=== PATIENT | female | born 1935 | race Caucasian/White ===

== ENCOUNTER 2019-02-26 08:01 | Observation (INO) ==
[2019-02-26] MEDS ORDERED: Ondansetron ODT 4 MG TAB.RAPDIS SL PRN (10:20)
[2019-02-26] MEDS ORDERED: Naloxone 0.4 MG/ML INJ IVP PRN (10:20)
[2019-02-26] MEDS ORDERED: D5% in Water 1,000 ML IVC PRN (10:29)
[2019-02-26] MEDS ORDERED: Dextrose Gel 15 GM/37.5 ML TUBE PO PRN ×2 (10:29)
[2019-02-26] MEDS ORDERED: *HR* Dextrose 50 % in Water (Syg) 50 ML SYRINGE IVP PRN (10:29)
[2019-02-26] MEDS: Insulin LISPRO 300 UNITS/3 ML VIAL SQ SCH ×2 (12:35→18:11)
[2019-02-26 12:39] LABS: Hematocrit 31.2 % (35.3-44.9); Hemoglobin 10.2 g/dL (11.5-15.4)
[2019-02-26] MEDS ORDERED: 0.9 % Sodium Chloride 1,000 ML IVC SCH (13:45)
[2019-02-26] MEDS ORDERED: SODIUM CHLORIDE/NAHCO3/KCL/PEG 4,000 ML SOLN.RECON PO ONE (17:00)
[2019-02-26 18:14] LABS: Hematocrit 30.3 % (35.3-44.9); Hemoglobin 10.1 g/dL (11.5-15.4)
[2019-02-26] MEDS ORDERED: Insulin LISPRO 300 UNITS/3 ML VIAL SQ SCH (21:00)
[2019-02-27 00:47] LABS: Hematocrit 30.3 % (35.3-44.9); Hemoglobin 10.2 g/dL (11.5-15.4)
[2019-02-27 04:52] LABS: Basophils # 0.1 K/mcL (0.0-0.2); Basophils % 0.5 %; Eosinophils # 0.3 K/mcL (0.0-0.6); Eosinophils % 2.3 %; Hematocrit 26.9 % (35.3-44.9); Hemoglobin 8.7 g/dL (11.5-15.4); Immature Granulocytes % 0.5 % (0-4); Lymphocytes # 2.4 K/mcL (0.6-4.6); Lymphocytes % 21.8 %; Mean Corpuscular HGB Conc 32.3 g/dL (31.6-35.5); Mean Corpuscular Hemoglobin 29.7 pg (28.0-33.3); Mean Corpuscular Volume 91.8 fL (83.0-100.0); Mean Platelet Volume 9.9 fL (9.4-12.4); Monocytes % 8.8 %; Neutrophils # 7.3 K/mcL (1.6-8.9); Platelet Count 164 K/mcL (140-400); Red Blood Count 2.93 M/mcL (3.82-4.97); Red Cell Distribution Width 14.2 % (11.5-14.5); Segmented Neutrophils % 66.1 %
[2019-02-27 04:55] LABS: INR 1.2; Prothrombin Time 13.1 Seconds (9.4-12.1)
[2019-02-27 05:10] LABS: BUN/Creatinine Ratio 24 (6-26); Blood Urea Nitrogen 17 mg/dL (8-23); Calcium 8.5 mg/dL (8.6-10.3); Carbon Dioxide 23 mEq/L (23-29); Chloride 106 mEq/L (98-107); Glucose 168 mg/dL (70-105); Magnesium 1.3 mg/dL (1.6-2.6); Osmolality,Calculated 291 (280-300); Potassium 3.9 mEq/L (3.5-5.1); Sodium 138 mEq/L (136-145); eGFR For African Americans > 60 (> 60); eGFR For Non-African Americans > 60 (> 60)
[2019-02-27] MEDS: Insulin LISPRO 300 UNITS/3 ML VIAL SQ SCH ×3 (08:26→20:59)
[2019-02-27] MEDS ORDERED: Insulin LISPRO 300 UNITS/3 ML VIAL SQ SCH ×4 (09:45→15:06)
[2019-02-27] MEDS ORDERED: Lidocaine -MPF 2% 2 ML VIAL ONE (12:33)
[2019-02-27] MEDS ORDERED: *HR* Propofol 200 MG/20 ML VIAL IVP ONE ×2 (12:33→12:37)
[2019-02-27] MEDS ORDERED: *HR* OxyCODONE Immed Rel 5 MG TABLET PO PRN ×2 (14:50→15:12)
[2019-02-27] MEDS ORDERED: Naloxone 0.4 MG/ML INJ IVP PRN (15:12)
[2019-02-27] MEDS ORDERED: D5% in Water 1,000 ML IVC PRN (15:12)
[2019-02-27] MEDS ORDERED: Ondansetron ODT 4 MG TAB.RAPDIS SL PRN (15:12)
[2019-02-27] MEDS ORDERED: Dextrose Gel 15 GM/37.5 ML TUBE PO PRN ×2 (15:12)
[2019-02-27] MEDS ORDERED: *HR* Dextrose 50 % in Water (Syg) 50 ML SYRINGE IVP PRN (15:12)
[2019-02-27 17:22] LABS: Hematocrit 26.1 % (35.3-44.9); Hemoglobin 8.6 g/dL (11.5-15.4)
[2019-02-27] MEDS: Magnesium Oxide 400 MG TABLET PO SCH (20:59)
[2019-02-27] MEDS ORDERED: Insulin DETEMIR 100 UNIT/ML X5UNITS SQ SCH ×2 (21:00)
[2019-02-27] MEDS ORDERED: Magnesium Oxide 400 MG TABLET PO SCH (21:00)
[2019-02-27 21:44] LABS: Hematocrit 24.4 % (35.3-44.9); Hemoglobin 8.2 g/dL (11.5-15.4)
[2019-02-28 03:41] LABS: Basophils % 0.4 %; Eosinophils # 0.2 K/mcL (0.0-0.6); Eosinophils % 2.6 %; Hematocrit 24.7 % (35.3-44.9); Hemoglobin 8.1 g/dL (11.5-15.4); Immature Granulocytes % 0.3 % (0-4); Lymphocytes # 2.1 K/mcL (0.6-4.6); Lymphocytes % 28.1 %; Mean Corpuscular HGB Conc 32.8 g/dL (31.6-35.5); Mean Corpuscular Hemoglobin 29.3 pg (28.0-33.3); Mean Corpuscular Volume 89.5 fL (83.0-100.0); Mean Platelet Volume 9.9 fL (9.4-12.4); Monocytes # 0.6 K/mcL (0.0-1.3); Monocytes % 8.1 %; Neutrophils # 4.6 K/mcL (1.6-8.9); Platelet Count 150 K/mcL (140-400); Red Blood Count 2.76 M/mcL (3.82-4.97); Red Cell Distribution Width 14.4 % (11.5-14.5); Segmented Neutrophils % 60.5 %; White Blood Count 7.6 K/mcL (4.3-11.1)
[2019-02-28 04:00] LABS: BUN/Creatinine Ratio 18 (6-26); Blood Urea Nitrogen 12 mg/dL (8-23); Calcium 8.4 mg/dL (8.6-10.3); Carbon Dioxide 26 mEq/L (23-29); Chloride 104 mEq/L (98-107); Glucose 170 mg/dL (70-105); Magnesium 1.5 mg/dL (1.6-2.6); Osmolality,Calculated 288 (280-300); Sodium 137 mEq/L (136-145); eGFR For African Americans > 60 (> 60); eGFR For Non-African Americans > 60 (> 60)
[2019-02-28] MEDS: Levothyroxine 25 MCG TABLET PO SCH (06:01)
[2019-02-28] MEDS ORDERED: Levothyroxine 25 MCG TABLET PO SCH (06:30)
[2019-02-28 08:10] LABS: Hematocrit 23.4 % (35.3-44.9); Hemoglobin 7.7 g/dL (11.5-15.4)
[2019-02-28] MEDS: Magnesium Oxide 400 MG TABLET PO SCH ×2 (08:16→20:38)
[2019-02-28] MEDS: Insulin LISPRO 300 UNITS/3 ML VIAL SQ SCH ×4 (08:18→20:38)
[2019-02-28] MEDS ORDERED: Pantoprazole 40 MG VIAL IVP SCH ×2 (09:00)
[2019-02-28] MEDS: Pantoprazole 40 MG VIAL IVP SCH (17:50)
[2019-03-01] MEDS: Levothyroxine 25 MCG TABLET PO SCH (05:47)
[2019-03-01] MEDS: Pantoprazole 40 MG VIAL IVP SCH ×2 (05:47→17:54)
[2019-03-01] MEDS: Insulin LISPRO 300 UNITS/3 ML VIAL SQ SCH ×4 (08:26→21:24)
[2019-03-01] MEDS: Magnesium Oxide 400 MG TABLET PO SCH ×2 (08:27→21:21)
[2019-03-01 08:32] LABS: Basophils % 0.4 %; Eosinophils # 0.2 K/mcL (0.0-0.6); Eosinophils % 2.7 %; Hematocrit 23.4 % (35.3-44.9); Hemoglobin 7.6 g/dL (11.5-15.4); Immature Granulocytes % 0.7 % (0-4); Lymphocytes # 1.5 K/mcL (0.6-4.6); Lymphocytes % 25.9 %; Mean Corpuscular HGB Conc 32.5 g/dL (31.6-35.5); Mean Corpuscular Hemoglobin 29.2 pg (28.0-33.3); Mean Platelet Volume 9.7 fL (9.4-12.4); Monocytes # 0.5 K/mcL (0.0-1.3); Monocytes % 8.1 %; Neutrophils # 3.5 K/mcL (1.6-8.9); Platelet Count 136 K/mcL (140-400); Segmented Neutrophils % 62.2 %; White Blood Count 5.6 K/mcL (4.3-11.1)
[2019-03-01 08:51] LABS: BUN/Creatinine Ratio 13 (6-26); Blood Urea Nitrogen 9 mg/dL (8-23); Calcium 8.5 mg/dL (8.6-10.3); Carbon Dioxide 28 mEq/L (23-29); Chloride 102 mEq/L (98-107); Glucose 241 mg/dL (70-105); Osmolality,Calculated 293 (280-300); Potassium 3.9 mEq/L (3.5-5.1); Sodium 138 mEq/L (136-145); eGFR For African Americans > 60 (> 60); eGFR For Non-African Americans > 60 (> 60)
[2019-03-01] MEDS ORDERED: 0.9 % Sodium Chloride 250 ML IVC SCH (10:45)
[2019-03-01] MEDS ORDERED: Acetaminophen 325 MG TABLET PO PRN (12:41)
[2019-03-02 05:22] LABS: Basophils % 0.4 %; Eosinophils # 0.2 K/mcL (0.0-0.6); Eosinophils % 3.7 %; Hematocrit 26.2 % (35.3-44.9); Hemoglobin 8.7 g/dL (11.5-15.4); Immature Granulocytes % 1.1 % (0-4); Lymphocytes # 1.7 K/mcL (0.6-4.6); Mean Corpuscular HGB Conc 33.2 g/dL (31.6-35.5); Mean Corpuscular Hemoglobin 29.4 pg (28.0-33.3); Mean Corpuscular Volume 88.5 fL (83.0-100.0); Mean Platelet Volume 10.1 fL (9.4-12.4); Monocytes # 0.5 K/mcL (0.0-1.3); Monocytes % 8.4 %; Neutrophils # 3.2 K/mcL (1.6-8.9); Platelet Count 158 K/mcL (140-400); Red Blood Count 2.96 M/mcL (3.82-4.97); Red Cell Distribution Width 14.2 % (11.5-14.5); Segmented Neutrophils % 56.4 %; White Blood Count 5.7 K/mcL (4.3-11.1)
[2019-03-02 05:41] LABS: BUN/Creatinine Ratio 15 (6-26); Blood Urea Nitrogen 10 mg/dL (8-23); Calcium 8.6 mg/dL (8.6-10.3); Carbon Dioxide 26 mEq/L (23-29); Chloride 104 mEq/L (98-107); Glucose 221 mg/dL (70-105); Osmolality,Calculated 294 (280-300); Potassium 3.6 mEq/L (3.5-5.1); Sodium 139 mEq/L (136-145); eGFR For African Americans > 60 (> 60); eGFR For Non-African Americans > 60 (> 60)
[2019-03-02] MEDS: Pantoprazole 40 MG VIAL IVP SCH (06:01)
[2019-03-02] MEDS: Levothyroxine 25 MCG TABLET PO SCH (06:02)
[2019-03-02 07:25] VITALS: BP 117/73
[2019-03-02] MEDS: Insulin LISPRO 300 UNITS/3 ML VIAL SQ SCH (08:36)
[2019-03-02] MEDS: Magnesium Oxide 400 MG TABLET PO SCH (08:36)
== END 2019-03-02 14:16 ==
LOC: ICNU → 3ANU 02-27 17:29
PROVIDERS: ADMIT Pediatrics; ATTEND Pediatrics

== ENCOUNTER 2019-03-16 12:38 | Inpatient (IN) ==
[2019-03-16] MEDS ORDERED: Ondansetron ODT 4 MG TAB.RAPDIS SL PRN (16:01)
[2019-03-16] MEDS ORDERED: Acetaminophen 325 MG TABLET PO PRN (16:01)
[2019-03-16] MEDS ORDERED: Naloxone 0.4 MG/ML INJ IVP PRN (16:01)
[2019-03-16] MEDS ORDERED: *HR* Heparin 5,000 UNIT/ML VIAL IVP ONE (16:22)
[2019-03-16] MEDS ORDERED: *HR* Heparin 5,000 UNIT/ML VIAL IVP PRN ×2 (16:22)
[2019-03-16] MEDS ORDERED: Dextrose Gel 15 GM/37.5 ML TUBE PO PRN ×2 (16:23)
[2019-03-16] MEDS ORDERED: D5% in Water 1,000 ML IVC PRN (16:23)
[2019-03-16] MEDS ORDERED: *HR* Dextrose 50 % in Water (Syg) 50 ML SYRINGE IVP PRN (16:23)
[2019-03-16] MEDS: Heparin 25,000 UNIT/250 ML D5W 25,000 UNIT/250 ML IV.SOLN IVC SCH (16:55)
[2019-03-16] MEDS: Insulin LISPRO 300 UNITS/3 ML VIAL SQ SCH (17:38)
[2019-03-16 18:22] LABS: Hematocrit 33.4 % (35.3-44.9); Hemoglobin 10.9 g/dL (11.5-15.4); Mean Corpuscular HGB Conc 32.6 g/dL (31.6-35.5); Mean Corpuscular Hemoglobin 29.2 pg (28.0-33.3); Mean Corpuscular Volume 89.5 fL (83.0-100.0); Mean Platelet Volume 9.9 fL (9.4-12.4); Platelet Count 235 K/mcL (140-400); Red Blood Count 3.73 M/mcL (3.82-4.97); Red Cell Distribution Width 14.4 % (11.5-14.5); White Blood Count 12.3 K/mcL (4.3-11.1)
[2019-03-16 19:24] LABS: INR 1.2; Prothrombin Time 13.6 Seconds (9.4-12.1)
[2019-03-16 19:36] LABS: Heparin anti-factor XA UFH 1.22 IU/mL (0.30-0.70)
[2019-03-17 02:14] LABS: Basophils % 0.4 %; Eosinophils # 0.5 K/mcL (0.0-0.6); Eosinophils % 4.6 %; Hematocrit 31.5 % (35.3-44.9); Hemoglobin 10.2 g/dL (11.5-15.4); Immature Granulocytes % 0.7 % (0-4); Lymphocytes # 2.4 K/mcL (0.6-4.6); Lymphocytes % 24.5 %; Mean Corpuscular HGB Conc 32.4 g/dL (31.6-35.5); Mean Corpuscular Volume 89.5 fL (83.0-100.0); Mean Platelet Volume 9.7 fL (9.4-12.4); Monocytes # 0.9 K/mcL (0.0-1.3); Neutrophils # 5.9 K/mcL (1.6-8.9); Platelet Count 197 K/mcL (140-400); Red Blood Count 3.52 M/mcL (3.82-4.97); Red Cell Distribution Width 14.6 % (11.5-14.5); Segmented Neutrophils % 60.8 %; White Blood Count 9.7 K/mcL (4.3-11.1)
[2019-03-17 02:33] LABS: BUN/Creatinine Ratio 35 (6-26); Blood Urea Nitrogen 26 mg/dL (8-23); Calcium 9.2 mg/dL (8.6-10.3); Carbon Dioxide 26 mEq/L (23-29); Chloride 97 mEq/L (98-107); Glucose 167 mg/dL (70-105); Osmolality,Calculated 283 (280-300); Potassium 4.4 mEq/L (3.5-5.1); Sodium 132 mEq/L (136-145); eGFR For African Americans > 60 (> 60); eGFR For Non-African Americans > 60 (> 60)
[2019-03-17] MEDS: Insulin LISPRO 300 UNITS/3 ML VIAL SQ SCH ×3 (09:39→18:17)
[2019-03-17 11:07] LABS: % Iron Saturation 8 % (15-50); Iron 24 mcg/dL (50-170); Transferrin 208 mg/dL (203-362)
[2019-03-17 11:33] LABS: Folate 20.2 ng/mL (3.0-16.0)
[2019-03-17] MEDS ORDERED: *HR* OxyCODONE Immed Rel 5 MG TABLET PO PRN (18:12)
[2019-03-17] MEDS: Heparin 25,000 UNIT/250 ML D5W 25,000 UNIT/250 ML IV.SOLN IVC SCH (18:17)
[2019-03-17] MEDS: Sennosides/Docusate Sodium TABLET PO SCH (21:05)
[2019-03-18 05:55] LABS: Hematocrit 31.1 % (35.3-44.9); Mean Corpuscular HGB Conc 32.2 g/dL (31.6-35.5); Mean Corpuscular Hemoglobin 28.7 pg (28.0-33.3); Mean Corpuscular Volume 89.1 fL (83.0-100.0); Platelet Count 203 K/mcL (140-400); Red Blood Count 3.49 M/mcL (3.82-4.97); Red Cell Distribution Width 14.4 % (11.5-14.5); White Blood Count 8.3 K/mcL (4.3-11.1)
[2019-03-18 06:17] LABS: BUN/Creatinine Ratio 29 (6-26); Blood Urea Nitrogen 23 mg/dL (8-23); Calcium 8.8 mg/dL (8.6-10.3); Carbon Dioxide 27 mEq/L (23-29); Chloride 97 mEq/L (98-107); Glucose 195 mg/dL (70-105); Osmolality,Calculated 289 (280-300); Potassium 4.1 mEq/L (3.5-5.1); Sodium 135 mEq/L (136-145); eGFR For African Americans > 60 (> 60); eGFR For Non-African Americans > 60 (> 60)
[2019-03-18] MEDS: Levothyroxine 25 MCG TABLET PO SCH (06:41)
[2019-03-18] MEDS: Sennosides/Docusate Sodium TABLET PO SCH ×2 (09:27→21:19)
[2019-03-18] MEDS: Aspirin Enteric Coated 81 MG Tablet PO SCH (09:27)
[2019-03-18] MEDS: Insulin LISPRO 300 UNITS/3 ML VIAL SQ SCH ×3 (09:27→17:14)
[2019-03-18] MEDS: Heparin 25,000 UNIT/250 ML D5W 25,000 UNIT/250 ML IV.SOLN IVC SCH (17:15)
[2019-03-19 03:12] LABS: Basophils % 0.5 %; Eosinophils # 0.3 K/mcL (0.0-0.6); Eosinophils % 3.5 %; Hematocrit 29.6 % (35.3-44.9); Hemoglobin 9.6 g/dL (11.5-15.4); Immature Granulocytes % 0.9 % (0-4); Lymphocytes # 2.7 K/mcL (0.6-4.6); Lymphocytes % 31.2 %; Mean Corpuscular HGB Conc 32.4 g/dL (31.6-35.5); Mean Corpuscular Hemoglobin 28.7 pg (28.0-33.3); Mean Corpuscular Volume 88.6 fL (83.0-100.0); Mean Platelet Volume 9.6 fL (9.4-12.4); Monocytes # 0.9 K/mcL (0.0-1.3); Monocytes % 10.1 %; Neutrophils # 4.6 K/mcL (1.6-8.9); Platelet Count 220 K/mcL (140-400); Red Blood Count 3.34 M/mcL (3.82-4.97); Red Cell Distribution Width 14.4 % (11.5-14.5); Segmented Neutrophils % 53.8 %; White Blood Count 8.6 K/mcL (4.3-11.1)
[2019-03-19] MEDS: Levothyroxine 25 MCG TABLET PO SCH (05:23)
[2019-03-19] MEDS: Aspirin Enteric Coated 81 MG Tablet PO SCH (08:49)
[2019-03-19] MEDS: Sennosides/Docusate Sodium TABLET PO SCH ×2 (08:49→21:44)
[2019-03-19] MEDS: Insulin LISPRO 300 UNITS/3 ML VIAL SQ SCH ×4 (08:50→21:44)
[2019-03-19] MEDS ORDERED: Isovue-300 150 ML INFUS..BTL ONE (14:49)
[2019-03-19] MEDS ORDERED: 0.9 % Sodium Chloride 1,000 ML ONE (14:49)
[2019-03-19] MEDS ORDERED: *HR* Heparin 10,000 UNIT/10 ML VIAL ONE (14:49)
[2019-03-19] MEDS ORDERED: Heparin 1,000 UNITS/500 mL 500 ML ONE (14:49)
[2019-03-19] MEDS: Heparin 25,000 UNIT/250 ML D5W 25,000 UNIT/250 ML IV.SOLN IVC SCH (19:23)
[2019-03-20] MEDS: Levothyroxine 25 MCG TABLET PO SCH (05:40)
[2019-03-20] MEDS: Sennosides/Docusate Sodium TABLET PO SCH ×2 (10:08→21:57)
[2019-03-20] MEDS: Aspirin Enteric Coated 81 MG Tablet PO SCH (10:09)
[2019-03-20] MEDS: Insulin LISPRO 300 UNITS/3 ML VIAL SQ SCH ×4 (10:10→21:57)
[2019-03-20] MEDS: Insulin DETEMIR 100 UNIT/ML X5UNITS SQ SCH (12:12)
[2019-03-20 12:27] LABS: Hematocrit 28.8 % (35.3-44.9); Hemoglobin 9.7 g/dL (11.5-15.4)
[2019-03-21] MEDS: Levothyroxine 25 MCG TABLET PO SCH (06:04)
[2019-03-21] MEDS: Insulin DETEMIR 100 UNIT/ML X5UNITS SQ SCH (09:41)
[2019-03-21] MEDS: Sennosides/Docusate Sodium TABLET PO SCH (09:41)
[2019-03-21] MEDS: Aspirin Enteric Coated 81 MG Tablet PO SCH (09:41)
[2019-03-21] MEDS: Insulin LISPRO 300 UNITS/3 ML VIAL SQ SCH ×3 (09:52→17:58)
[2019-03-21] MEDS: Heparin 25,000 UNIT/250 ML D5W 25,000 UNIT/250 ML IV.SOLN IVC SCH (10:32)
[2019-03-21 15:20] VITALS: BP 116/62
[2019-03-21] MEDS ORDERED: Insulin LISPRO 300 UNITS/3 ML VIAL SQ SCH (21:00)
[2019-03-21] MEDS ORDERED: Insulin DETEMIR 100 UNIT/ML X5UNITS SQ SCH (21:00)
== END 2019-03-21 18:50 | DRG 254 ==
LOC: 3BNU → SUATTDRO 14:14 → UNDODISIN 03-19 16:13
PROVIDERS: ADMIT Internal Medicine; ATTEND Internal Medicine